=== PATIENT | female | born 1990 | race Hispanic/Latino ===

== ENCOUNTER 2025-04-04 21:46 | Inpatient (IN) | payer SELFPAY ==
[2025-04-04] MEDS ORDERED: Ondansetron PF 4 MG/2 ML Vial ONE (22:11)
[2025-04-04 22:45] LABS: #Basophils 0.06 10x3/uL (0.0-0.2); #Eosinophils 0.09 10x3/uL (0.0-0.5); #Monocytes 0.43 10x3/uL (0.0-1.1); #Neutrophils 15.86 10x3/uL (1.5-8.4); %Basophils 0.3 % (0.0-2.0); %Eosinophils 0.5 % (0.0-6.0); %Lymphocytes 11.0 % (18.0-47.0); %Monocytes 2.3 % (0.0-10.0); %Neutrophils 85.5 % (40.0-75.0); Hematocrit 42.8 % (34.9-44.5); Hemoglobin 14.7 g/dL (12.0-15.5); Mean Corpuscular Hemoglobin 27.9 pg (27.0-33.0); Mean Corpuscular Volume 81.2 fL (81.6-98.3); Platelet Count 383 10x3/uL (150-450); Red Blood Cell (RBC) Count 5.27 10x6/uL (3.90-5.03); White Blood Cell (WBC) Count 18.57 10x3/uL (3.5-10.5)
[2025-04-04 22:53] LABS: Glucose, Urine (Dipstick) >=1000 mg/dL (Negative); Leukocyte 100 (Negative); Protein, Urine (Dipstick) 30 mg/dl (Neg-Trace); Specific Gravity, Urine 1.020 (1.005-1.030)
[2025-04-04 22:59] LABS: Cocaine Metabolite Screen Negative (Negative); THC/Cannabinoid Screen Negative (Negative); Tricyclic Screen Negative (Negative)
[2025-04-04] MEDS ORDERED: cefTRIAXone (ROCEPHIN) 1 GM VIAL ONE (23:01)
[2025-04-04 23:06] LABS: Acetaminophen Less than 10 mcg/mL (Less than 10); Lipase 39 U/L (8-78); Salicylate Less than 8.0 mg/dL (Less than 8.0)
[2025-04-04 23:09] LABS: ALT (SGPT) 36 U/L (Less than 34); AST (SGOT) 28 U/L (11-34); Albumin 4.3 g/dL (3.1-4.5); Alkaline Phosphatase 136 U/L (40-110); Anion Gap 18 mmol/L (10-20); BUN (Urea Nitrogen) 13 mg/dL (7.0-18.7); Bilirubin, Total 0.5 mg/dL (0.3-1.2); CK (CPK) 72 U/L (29-168); Calc. Creatinine Clearance 0 mL/min (70-130); Calcium 9.6 mg/dL (7.8-10.44); Carbon Dioxide 21 mmol/L (22-29); Chloride 97 mmol/L (98-107); Globulin 3.9 g/dL (2.4-3.5); Glucose 321 mg/dL (70-105); Potassium 4.4 mmol/L (3.5-5.1); Sodium 132 mmol/L (136-145)
[2025-04-04 23:09] LABS: Bacteria/HPF Rare-Few HPF (None Seen); CAUTI Indications for Culture Dysuria,urgency,freq; RBC/HPF 0-3 HPF (0-3); Urine Culture Reflex No No; WBC/HPF 0-3 HPF (0-3)
[2025-04-04 23:14] LABS: Troponin I Less than 0.010 ng/mL (< 0.028)
[2025-04-04 23:32] LABS: BHCG - Serum Negative (NEGATIVE); Pregs Control Background? CLEAR/WHITE (CLR/WHITE); Pregs Control Bar Appear? YES (CONTROL BAR)
[2025-04-05] MEDS ORDERED: Ondansetron PF 4 MG/2 ML Vial IVP PRN (00:14)
[2025-04-05] MEDS ORDERED: Acetaminophen 325 MG TAB PO PRN (00:14)
[2025-04-05] MEDS ORDERED: Dextrose 50% Abboject 50 ML SYRINGE SLOW IVP PRN (00:15)
[2025-04-05] MEDS ORDERED: Glucagon 1 MG/ML KIT IM PRN (00:15)
[2025-04-05] MEDS ORDERED: cefTRIAXone (ROCEPHIN) 1 GM VIAL ONE (00:39)
[2025-04-05 00:54] LABS: Actual Bicarbonate (HCO3v) 23.6 mEq/L (22-28); Analyzer IN Cardio CS ER; Base Excess -1.9 mEq/L (-2 - +2); Calcium, Ionized (venous) 1.11 mmol/L (1.16-1.32); Chloride (VBG) 98 mmol/L (98-106); Critical Notified By: CP.PH; Hematocrit-VBG 41 % (36.0-47.0); Hemoglobin (Hb) 13.8 g/dL (11.7-15.5); Potassium (VBG) 3.93 mmol/L (3.70-5.30); Puncture Site Other Site; RapidComm Collect By LAB.YY; Sodium 132 mmol/L (133-146)
[2025-04-05] MEDS ORDERED: Ondansetron PF 4 MG/2 ML Vial ONE (02:50)
[2025-04-05 02:58] LABS: #Basophils 0.04 10x3/uL (0.0-0.2); #Eosinophils 0.04 10x3/uL (0.0-0.5); #Monocytes 0.79 10x3/uL (0.0-1.1); #Neutrophils 13.71 10x3/uL (1.5-8.4); %Basophils 0.2 % (0.0-2.0); %Eosinophils 0.2 % (0.0-6.0); %Lymphocytes 12.0 % (18.0-47.0); %Monocytes 4.8 % (0.0-10.0); %Neutrophils 82.5 % (40.0-75.0); Hematocrit 37.1 % (34.9-44.5); Hemoglobin 12.6 g/dL (12.0-15.5); Mean Corpuscular Hemoglobin 27.8 pg (27.0-33.0); Mean Corpuscular Volume 81.9 fL (81.6-98.3); Platelet Count 311 10x3/uL (150-450); Red Blood Cell (RBC) Count 4.53 10x6/uL (3.90-5.03); White Blood Cell (WBC) Count 16.63 10x3/uL (3.5-10.5)
[2025-04-05 03:13] LABS: ALT (SGPT) 28 U/L (Less than 34); AST (SGOT) 17 U/L (11-34); Albumin 3.6 g/dL (3.1-4.5); Alkaline Phosphatase 106 U/L (40-110); Anion Gap 12 mmol/L (10-20); BUN (Urea Nitrogen) 9 mg/dL (7.0-18.7); Bilirubin, Total 0.4 mg/dL (0.3-1.2); Calc. Creatinine Clearance 0 mL/min (70-130); Calcium 8.2 mg/dL (7.8-10.44); Carbon Dioxide 22 mmol/L (22-29); Chloride 103 mmol/L (98-107); Globulin 3.3 g/dL (2.4-3.5); Glucose 298 mg/dL (70-105); Potassium 3.4 mmol/L (3.5-5.1); Sodium 134 mmol/L (136-145)
[2025-04-05 03:42] VITALS: BMI 38.4
[2025-04-05] MEDS: VANCOMYCIN 2 GRAM/400 ML BAG 2 GM in Premix 1 BAG IVPB SCH (04:25)
[2025-04-05 08:30] LABS: Vancomycin, Random 34.2 ug/mL (See Comment)
[2025-04-05] MEDS: Famotidine/PF 20 mg/2ml Vial SLOW IVP SCH (09:07)
[2025-04-05] MEDS: Famotidine 20 MG TAB PO SCH (09:09)
[2025-04-05] MEDS: Enoxaparin 40 MG (0.4 mL) SYRINGE SC SCH (09:10)
[2025-04-05] MEDS: cefTRIAXone\\ROCEPHIN 2 GM in Sodium Chloride 0.9% 100 ML IVPB SCH (09:20)
[2025-04-05] MEDS ORDERED: Iopamidol 300 61% 100 ML VIAL FS ONE (09:27)
[2025-04-05 10:31] LABS: INR-International Normal Ratio 1.0; Prothrombin Time 11.4 sec (9.5-12.1)
[2025-04-05] MEDS: ADMIXTURE FEE IVPB SCH ×2 (12:49→13:19)
[2025-04-05] MEDS: DEXAMETHASONE IVPB SCH (12:49)
[2025-04-05] MEDS: SODIUM CHLORIDE IVPB SCH ×2 (12:49→13:19)
[2025-04-05] MEDS: ACYCLOVIR SODIUM IVPB SCH (13:19)
[2025-04-05] MEDS ORDERED: Acyclovir Sodium 500 mg (10 mL) Vial IVPB SCH (14:00)
[2025-04-05 14:44] LABS: CSF, Glucose 154 mg/dl (40-70); CSF, Protein 26.7 mg/dL (15-40)
[2025-04-05 14:49] LABS: Color Of CSF Supernatant COLORLESS (Colorless); Unspun CSF Color COLORLESS (Colorless)
[2025-04-05 16:03] LABS: CSF Source CSF
[2025-04-05 16:04] LABS: CSF RBC Count - Manual 36 /cu.mm (None Seen); CSF Source CSF; CSF WBC/NonHematics Count-Man 2 /cu.mm (0-5)
[2025-04-05 16:04] LABS: CSF RBC Count - Manual 1 /cu.mm (None Seen); CSF WBC/NonHematics Count-Man 2 /cu.mm (0-5)
[2025-04-05] MEDS: Vancomycin 1 GM in Sodium Chloride 0.9% 250 ML 250 ML IVPB SCH ×2 (16:26→16:36)
[2025-04-05 18:15] LABS: D-Dimer Test 0.7 mcg/mL (0.19-0.50); INR-International Normal Ratio 1.0; PTT 26.1 sec (22.0-33.0); Prothrombin Time 11.4 sec (9.5-12.1)
[2025-04-06 05:38] LABS: Vancomycin, Random 13.3 ug/mL (See Comment)
[2025-04-06 07:14] LABS: Glucose POC Confirmation 460 mg/dL (70-105)
[2025-04-06] MEDS: cefTRIAXone\\ROCEPHIN 2 GM in Sodium Chloride 0.9% 100 ML IVPB SCH (09:00)
[2025-04-06 09:30] LABS: Hematocrit 38.7 % (34.9-44.5); Hemoglobin 13.3 g/dL (12.0-15.5); Mean Corpuscular Hemoglobin 28.2 pg (27.0-33.0); Mean Corpuscular Volume 82.2 fL (81.6-98.3); Platelet Count 439 10x3/uL (150-450); Red Blood Cell (RBC) Count 4.71 10x6/uL (3.90-5.03); White Blood Cell (WBC) Count 26.54 10x3/uL (3.5-10.5)
[2025-04-06 10:03] LABS: Anion Gap 16 mmol/L (10-20); BUN (Urea Nitrogen) 14 mg/dL (7.0-18.7); Calc. Creatinine Clearance 200 mL/min (70-130); Calcium 9.5 mg/dL (7.8-10.44); Carbon Dioxide 19 mmol/L (22-29); Chloride 105 mmol/L (98-107); Glucose 353 mg/dL (70-105); Potassium 4.6 mmol/L (3.5-5.1); Sodium 135 mmol/L (136-145)
[2025-04-06 10:26] LABS: Platelet Adequacy Comment Appears Adequate; RBC Morphology Within Normal Limits
[2025-04-06 10:27] LABS: MDiff Complete? YES
[2025-04-06] MEDS ORDERED: Iopamidol 370 76% 100 ML VIAL ONE (11:45)
[2025-04-06] MEDS: Lantus 1000 UNITS/10 ML VIAL SC SCH (16:57)
[2025-04-07 03:50] LABS: #Basophils Less than 0.03 10x3/uL (0.0-0.2); #Eosinophils Less than 0.03 10x3/uL (0.0-0.5); #Monocytes 0.95 10x3/uL (0.0-1.1); #Neutrophils 18.53 10x3/uL (1.5-8.4); %Basophils 0.1 % (0.0-2.0); %Eosinophils 0.0 % (0.0-6.0); %Lymphocytes 15.7 % (18.0-47.0); %Monocytes 4.1 % (0.0-10.0); %Neutrophils 79.3 % (40.0-75.0); Hematocrit 36.4 % (34.9-44.5); Hemoglobin 12.3 g/dL (12.0-15.5); Mean Corpuscular Hemoglobin 27.6 pg (27.0-33.0); Mean Corpuscular Volume 81.8 fL (81.6-98.3); Platelet Count 387 10x3/uL (150-450); Red Blood Cell (RBC) Count 4.45 10x6/uL (3.90-5.03); White Blood Cell (WBC) Count 23.35 10x3/uL (3.5-10.5)
[2025-04-07 04:04] LABS: Anion Gap 12 mmol/L (10-20); BUN (Urea Nitrogen) 14 mg/dL (7.0-18.7); Calc. Creatinine Clearance 176 mL/min (70-130); Calcium 8.8 mg/dL (7.8-10.44); Carbon Dioxide 26 mmol/L (22-29); Chloride 102 mmol/L (98-107); Glucose 364 mg/dL (70-105); Potassium 3.6 mmol/L (3.5-5.1); Sodium 136 mmol/L (136-145)
[2025-04-07] MEDS: Lantus 1000 UNITS/10 ML VIAL SC SCH ×2 (08:51→21:35)
[2025-04-07 12:25] LABS: EliA APS New Method **** NEW METHOD ****
[2025-04-08 00:36] LABS: HSV 1 - DNA, CSF Negative (Negative); HSV 2 - DNA, CSF Negative (Negative)
[2025-04-08 04:59] LABS: #Basophils 0.03 10x3/uL (0.0-0.2); #Eosinophils 0.04 10x3/uL (0.0-0.5); #Monocytes 0.53 10x3/uL (0.0-1.1); #Neutrophils 3.74 10x3/uL (1.5-8.4); %Basophils 0.3 % (0.0-2.0); %Eosinophils 0.4 % (0.0-6.0); %Lymphocytes 54.7 % (18.0-47.0); %Monocytes 5.5 % (0.0-10.0); %Neutrophils 38.6 % (40.0-75.0); Hematocrit 34.0 % (34.9-44.5); Hemoglobin 11.6 g/dL (12.0-15.5); Mean Corpuscular Hemoglobin 27.9 pg (27.0-33.0); Mean Corpuscular Volume 81.7 fL (81.6-98.3); Platelet Count 369 10x3/uL (150-450); Red Blood Cell (RBC) Count 4.16 10x6/uL (3.90-5.03); White Blood Cell (WBC) Count 9.70 10x3/uL (3.5-10.5)
[2025-04-08 05:14] LABS: Anion Gap 12 mmol/L (10-20); BUN (Urea Nitrogen) 13 mg/dL (7.0-18.7); Calc. Creatinine Clearance 204 mL/min (70-130); Calcium 8.1 mg/dL (7.8-10.44); Carbon Dioxide 27 mmol/L (22-29); Chloride 103 mmol/L (98-107); Glucose 309 mg/dL (70-105); Potassium 3.9 mmol/L (3.5-5.1); Sodium 138 mmol/L (136-145)
[2025-04-08 08:28] VITALS: TEMP 97.9
[2025-04-08] MEDS: Lantus 1000 UNITS/10 ML VIAL SC SCH (08:29)
[2025-04-08 12:28] VITALS: BP 107/75
[2025-04-08 13:38] LABS: West Nile Virus IgG Ab - CSF Negative (Negative); West Nile Virus IgM Ab - CSF Negative (Negative)
[2025-04-08] MEDS ORDERED: Lantus 1000 UNITS/10 ML VIAL SC SCH (21:00)
[2025-04-11 18:37] LABS: Aspergillus AB-CSF <1:1 (.); Blastomyces AB-CSF <1:1 (.); Histoplasma Mycelial AB-CSF <1:1 (.); Histoplasma Yeast AB-CSF <1:1 (.)
== END 2025-04-08 12:58 | disposition home or self-care (01) | DRG 871 ==
LOC: CSHERS 21:46 → CSHTELE 04-05 01:19
PROVIDERS: ADMIT Internal Medicine; ATTEND Family Medicine
PROC: 3E03329 Introduction of Other Anti-infective into Peripheral Vein, Percutaneous Approach (ICD-10-PCS; 2025-04-04)
PROC: 009U3ZZ Drainage of Spinal Canal, Percutaneous Approach (ICD-10-PCS; principal; 2025-04-05)
PROC: B01BZZZ Fluoroscopy of Spinal Cord (ICD-10-PCS; 2025-04-05)
PROC: XX20X89 Monitoring of Brain Electrical Activity, Computer-aided Detection and Notification, New Technology Group 9 (ICD-10-PCS; 2025-04-05)
DX: A41.9 Sepsis, unspecified organism (principal); G93.41 Metabolic encephalopathy; R65.21 Severe sepsis with septic shock; N10 Acute pyelonephritis; Z88.8 Allergy status to other drugs, medicaments and biological substances; K63.89 Other specified diseases of intestine; E11.65 Type 2 diabetes mellitus with hyperglycemia; Z98.891 History of uterine scar from previous surgery; Z98.51 Tubal ligation status; R55 Syncope and collapse; Z82.3 Family history of stroke; T38.0X5A Adverse effect of glucocorticoids and synthetic analogues, initial encounter; D72.823 Leukemoid reaction
CPT/HCPCS: 36415; 36416; 62270; 70450; 70553; 71045; 71275; 74177; 76376; 80048; 80053; 80202; 80306; 80307; 81001; 82140; 82550; 82805; 82945; 82947; 83036; 83090; 83690; 84145; 84157; 84443; 84484; 84703; 85025; 85300; 85303; 85306; 85307; 85598; 85610; 85730; 86140; 86147; 86592; 86612; 86635; 86698; 86788; 86789; 87040; 87070; 87205; 87324; 87449; 87529; 89051; 93005; 94760; 95705; 96374; 96375; 96376; J0133; J0696; J1100; J1308; J1650; J1815; J2270; J2405; J2919; J3360; J3373; J3375; J7030; J7050; Q9967